=== PATIENT | male | born 1980 | race Two or more races ===

== ENCOUNTER 2019-10-31 19:32 | Emergency (ER) | payer BC ==
[~2019-10-31] VITALS: Ht 177.8 cm; Wt 90.7 kg
[2019-10-31 19:43] VITALS: BP 167/123
== END 2019-10-31 20:06 | disposition home or self-care (01) ==
LOC: ER 19:32
DX: T16.2XXA Foreign body in left ear, initial encounter (principal); Z86.19 Personal history of other infectious and parasitic diseases; W45.8XXA Other foreign body or object entering through skin, initial encounter; Y93.89 Activity, other specified; Y92.89 Other specified places as the place of occurrence of the external cause; Y99.8 Other external cause status